=== PATIENT | female | born 1965 | race Caucasian/White ===

== ENCOUNTER 2021-10-30 17:07 | Outpatient (CLI) | payer BC, SELFPAY ==
--- NOTE | ~2021-10-30 | MM_ITS ---
EXAMINATION: MM screening benjamin BI w radha HISTORY: Screening TECHNIQUE: Craniocaudal and mediolateral oblique 3-D tomosynthesis images were obtained and synthetic 2-D images were generated. CAD analysis was submitted and interpreted. COMPARISON: Comparison to multiple prior studies sequentially, with oldest reviewed study dated 07/13. BREAST PARENCHYMAL COMPOSITION: There are scattered areas of fibroglandular density. FINDINGS: There is no evidence of suspicious mass, calcification, or architectural distortion to sugg est malignancy in either breast. There has been no suspicious interval change. IMPRESSION: 1. No mammographic evidence of malignancy. 2. Recommend routine screening mammography in one year. BI-RADS Category 1: Negative Reviewed, dictated and finalized at location A.
== END 2021-10-30 17:08 | disposition home or self-care (01) ==
PROVIDERS: PCP Internal Medicine; Visit Provider Obstetrics & Gynecology
DX: Z12.31 Encounter for screening mammogram for malignant neoplasm of breast (principal)
CPT/HCPCS: 77063; 77067

== ENCOUNTER 2024-03-14 17:30 | Emergency (ER) | payer BC, SELFPAY ==
--- NOTE | 2024-03-14 17:37 | ED.GENADULT ---
HPI - General Adult General Chief complaint: Dental/Oral Stated complaint: RT side Jaw Pain Time Seen by Provider: 03/14/24 17:38 Source: patient, RN notes reviewed and old records reviewed Mode of arrival: ambulatory Limitations: no limitations History of Present Illness HPI narrative: 58-year-old female presents to the [facility] with concerns of 10 day history of right jaw pain. Denies any injury. No redness or swelling. Patient reports tenderness to just to palpation. Has taken ibuprofen intermittently Onset (ago): day(s) (10) Treatments prior to arrival: NSAID Related Data Home Medications Medication Instructions Recorded Confirmed cholecalciferol (vitamin D3) 10 400 unit PO DAILY 04/11/19 03/14/24 mcg (400 unit) capsule ferrous sulfate 325 mg (65 mg 325 mg PO DAILY 04/11/19 03/14/24 iron) tablet (Feosol) ascorbic acid (vitamin C) 500 mg 500 mg PO DIRECTED 04/04/21 03/14/24 capsule multivitamin (Daily Multi-Vitamin 1 tablet PO DAILY 04/04/21 03/14/24 tablet) Allergies Allergy/AdvReac Type Severity Reaction Status Date / Time No Known Allergies Allergy Unknown Verified 08/17/23 08:13 Review of Systems Review of Systems: All systems reviewed & are unremarkable except as noted in HPI and below Constitutional: Constitutional: Reports no additional constitutional complaints ENT: Reports as per HPI Cardiovascular: Cardiovascular: Reports no additional cardiovascular complaints, Denies chest pain and Denies dyspnea Respiratory: Respiratory: Reports no additional respiratory complaints, Denies chest congestion, Denies cough and Denies dyspnea Gastrointestinal: Gastrointestinal: Reports no additional gastrointestinal complaints, Denies abdominal pain, Denies nausea and Denies vomiting Musculoskeletal: Musculoskeletal: Reports no additional musculoskeletal complaints Integumentary/Breasts: Skin/Breast: Reports system reviewed and no additional complaints, except as docu PMFSH Past Medical History Medical History Anemia Heart murmur Screening mammogram, encounter for Surgical History Surgical History History of dilation and curettage 11/16/11 hscope d&c/polypectomy/Novasure endometrial ablation History of endometrial ablation 11/16/11 hscope d&c/polypectomy/Novasure endometrial ablation History of partial thyroidectomy (~1987) (R) thyroidectomy History of removal of skin mole removed from face--benign History of tonsillectomy Family History Family History Mother Patient's mother is Diabetes mellitus Cerebrovascular accident Heart disease Hypertension Osteoporosis Father Patient's father is Grandparent Cerebrovascular accident paternal grandfather Diabetes mellitus maternal grandfather Hypertension maternal grandmother Carcinoma of colon maternal grandfather Other Diabetes mellitus sister Social History Social History Smoking status: Never smoker Second hand tobacco smoke exposure: No Alcohol intake: current Alcohol use details: 1-2 per month Substance use: never Substance use type: does not use Lack of Transportation: No Lack of Food: Never True Current Housing: I Have Housing Concerned About Future Housing: No Difficulty Paying Gas/Electric Bills: No Difficulty Paying for Meds: No Currently Unemployed: No Education: Associate Degree Difficulty w/ Childcare or Family Care: No Living arrangements: other Additional living arrangements comments: Occupation/Education: occupation Additional occupation/education comments: RN Gender identity (if verbalized by the patient): Female Sexual Orientation (if Verbalized by the Patient): Straight or Heterosexual Comments At the time of my signature, I reviewed and agree with the nursing past medical, surgical, social, and family history. There is no relevant family history pertinent to the patient complaint. Exam Const: General: cooperative, healthy appearing, comfortable, no acute distress, well developed, alert and well nourished Nutritional Appearance: well nourished Orientation/consciousness: patient oriented x3 Limitations: no limitations HENMT: Head: normal to inspection Head images: 1. Reports tenderness to palpation. No erythema, ecchymosis. No dental caries, no gingival swelling. No salivary gland stones palpated. No lymphadenopathy. Ears: hearing grossly normal bilaterally and external ears normal Face/Nose/Sinus: Normal external nose present, normal facial exam and face symmetric Face and sinus: normal facial exam and face symmetric Eyes: General: appearance normal, both eyes and all related structures Alignment and Position: alignment normal Periorbital: periorbital findings normal Neck: Neck: normal visual inspection, full ROM, no lymphadenopathy and no meningeal signs Chest: Chest palpation & inspection: normal inspection of the chest Resp: Effort & Inspection: normal respiratory effort and able to speak in complete sentences Cardio: Rate: regular rate Skin: General skin exam: normal color and no rashes or lesions noted Lesions: no lesions Rashes: no rashes Wounds: no wounds Neuro: General: patient oriented x3, gait normal, tone normal, moves all extremities and no meningeal signs Cognition (Neuro): normal cognition Speech: normal speech Gait exam (Neuro): Normal gait present Extrem: General: normal to inspection, full ROM, capillary refill normal and normal gait Psych: Appearance: grossly normal and well kempt Mental Status: mental status grossly normal Speech and movement: Normal speech and movement present and Clear speech present Affect: normal affect Attitude: cooperative Course Course Level of Care: Express Care Visit Vital Signs Vital signs: Vital Signs Temperature 98.1 F 03/14/24 17:38 Pulse Rate 71 03/14/24 17:38 Respiratory Rate 16 03/14/24 17:38 Blood Pressure 134/80 03/14/24 17:38 Pulse Oximetry 96 03/14/24 17:38 Oxygen Delivery Room Air 03/14/24 17:38 Temperature 98.1 F 03/14/24 17:41 Pulse Rate 71 03/14/24 17:41 Respiratory Rate 16 03/14/24 17:41 Blood Pressure 134/80 03/14/24 17:41 Pulse Oximetry 96 03/14/24 17:41 Oxygen Delivery Room Air 03/14/24 17:41 Reviewed Medical Decision Making MDM Narrative Medical decision making narrative: Patient sitting comfortably in exam room. Nontoxic, vitals stable. Patient in no acute distress Patient presents for right lower posterior jaw pain. No associated symptoms other than pain. No acute findings noted on exam. Discharge instructions reviewed with patient, as well as provided in writing per nursing staff. The instructions also include specific and strict return/GO TO THE ER as well as f/u information. All questions have been answered, and the patient deny any further questions with discharge and discharge plan. Some parts of this dictation were generated by voice recognition software and may contain typographical and/or grammatical inaccuracies. Differential Diagnosis Differential Diagnosis: TMJ, dental infection, cell very gland stone. Medical Records Medical records reviewed: Yes I reviewed the external patient's medical records. Vital Signs Vital Signs: Vital Signs Temperature 98.1 F 03/14/24 17:38 Pulse Rate 71 03/14/24 17:38 Respiratory Rate 16 03/14/24 17:38 Blood Pressure 134/80 03/14/24 17:38 Pulse Oximetry 96 03/14/24 17:38 Oxygen Delivery Room Air 03/14/24 17:38 Temperature 98.1 F 03/14/24 17:41 Pulse Rate 71 03/14/24 17:41 Respiratory Rate 16 03/14/24 17:41 Blood Pressure 134/80 03/14/24 17:41 Pulse Oximetry 96 03/14/24 17:41 Oxygen Delivery Room Air 03/14/24 17:41 Reviewed Lab Data Lab results reviewed: Yes I reviewed the patient's lab results. Labs: Reviewed Critical Care Time Critical Care Time Critical Care Time: No Discharge Plan Discharge Clinical Impression: Jaw pain Patient Disposition: Home, Self-Care Condition: Stable Instructions: Antibiotic Form, Temporomandibular Disorder (ED), Sialoadenitis (ED) Additional Instructions: Take Motrin alternating with Tylenol as needed for pain You can try using warm moist heat or cold compress whichever feels better Follow-up with dental provider Follow-up with primary care provider Patient Language: Khmer Prescriptions: No Action ferrous sulfate [Feosol] 325 mg (65 mg iron) tablet 325 mg PO DAILY cholecalciferol (vitamin D3) 400 unit capsule 400 unit PO DAILY ascorbic acid (vitamin C) 500 mg capsule 500 mg PO DIRECTED multivitamin [Daily Multi-Vitamin] Tablet 1 tablet PO DAILY Follow-up/Referrals: PHYSICIAN,OUTSOLES CHANNEL OPENER [Primary Care Provider] - Stand Alone Forms: Work/School Release IP Time of Disposition: 17:49
[2024-03-14 17:38] VITALS: BP 134/80; PULSE 71; RESP 16; TEMP 36.7; O2SAT 96
[2024-03-14 17:41] VITALS: BP 134/80; PULSE 71; RESP 16; TEMP 36.7; O2SAT 96
== END 2024-03-14 17:53 | disposition home or self-care (01) ==
PROVIDERS: Emergency Provider Nurse Practitioner
DX: R68.84 Jaw pain (principal); R01.1 Cardiac murmur, unspecified; D64.9 Anemia, unspecified
CPT/HCPCS: 99211; G0463

== ENCOUNTER 2024-11-20 00:47 | Day surgery (SDC) | payer BC, SELFPAY ==
[2024-11-07 12:20] VITALS: BMI 22.2
--- OUTSIDE RECORDS SUMMARY | 2024-11-20 00:50 | XMS_ITS | Clinical Summary ---
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 Gender Identity Not on file Sexual Orientation Not on file Plan of Treatment Health Maintenance Due Date Last Done Comments DTAP/TDAP/TD VACCINES (1 - Tdap) 1983 HPV/Cotest (21-29) 1985 CERVICAL CANCER SCREENING 1994 HPV/Cotest (30-65) 1994 PAP SMEAR 1994 BREAST CANCER SCREENING 2004 COLORECTAL SCREENING 2009 Colorectal Cancer Screening 2009 FIT-DNA Q 3 years 2009 FIT/FOBT Q 1 year 2009 Flex Sig/CT Colonography Q 5 years 2009 ZOSTER VACCINE (1 of 2) 2014 INFLUENZA VACCINE (#1) 2024 RSV VACCINE (60+ or ) (1 - 1-dose 75+ series) 2039 HEPATITIS B VACCINES Aged Out No long er eligible based on patient's age to complete this topic
--- OUTSIDE RECORDS SUMMARY | 2024-11-20 00:50 | XMS_ITS | Clinical Summary ---
Author Organization [facility] Address [address] [place] [address] Care Team Providers Care Software Controls Engineer Name Role Phone Daren Lentz MD Primary Care Provider [phone] Allergies No known active allergies Medications ranitidine 300 MG tablet Take 300 mg by mouth nightly at bedtime. Active Na sulfate-K sulfate-Mg sulfate (SUPREP BOWEL PREP KIT) 17.5-3.13-1.6 GM/177ML SolutionIndicat ions:Family history of polyps in the colon Take 177 mLs by mouth every 12 (twelve) hours. Take as directed in the instructions 2 Bottle 9 Active Cholecalciferol (VITAMIN D3) 2000 units Tab Take 2,000 Units by mouth. Active ferrous sulfate, 65 mg elemental, 325 (65 FE) MG tablet Take 130 mg by mouth daily with breakfast. Active Active Problems No known active problems Family History Medical History Relation Comments Colon Cancer Maternal Grandfather Hypertension Maternal Grandmother Hypertension Mother Relation Status Comments Maternal Grandfather Maternal Grandmother Mother Social History Tobacco Use Types Packs/Day Years Used Date Smoking Tobacco: Never Smokeless Tobacco: Never Alcohol Use Standard Drinks/Week Comments Yes 0 (1 standard drink = 0.6 oz pur e alcohol) rarely Comments Unknown Sex and Gender Information Value Date Recorded Sex Assigned at Not on file Legal Sex Female 8:37 PM CDT Gender Identity Not on file Sexual Orientation Not on file Last Filed Vital Signs Vital Sign Reading Time Taken Comments Blood Pressure 106/67 11/18/2018 9:31 AM CDT Pulse 56 11/18/2018 9:31 AM CDT Temperature 36.4 C (97.6 F) 11/18/2018 9:17 AM CDT Respiratory Rate 16 11/18/2018 9:31 AM CDT Oxygen Saturation 100% 11/18/2018 9:31 AM CDT Inhaled Oxygen Concentration - - Weight 54.4 kg (120 lb) 11/11/2018 2:53 PM CDT Height 160 cm (5' 3) 11/11/2018 2:53 PM CDT Body Mass Index 21.26 11/11/2018 2:53 PM CDT Plan of Treatment Health Maintenance Due Date Last Done Comments Cervical Cancer Screening Pa p Smear (Age 30 to 64) Every 3 Years 1964 Colorectal Cancer Screening Colonoscopy (10 Years) 1964 Annual Physical 1967 Hepatitis C 1982 DTaP, Tdap and Td Vaccines ( 1 - Tdap) 1983 Cervical Cancer Screening Pa p with HPV Testing (Age 30 to 64) Every 5 Years 1994 Cervical Cancer Screening with HPV 1994 Pneumococcal Vaccine: 50+ Ye ars (1 of 1 - PCV) 2014 Zoster Vaccines (1 of 2) 2014 Mammogram Screening 05/10/2021 05/10/2019 COVID-19 Vaccine ( - 2023-2 5 season) 2024 RSV Immunization or 60+ Years (1 - 1-dose 75+ series) 2039 Meningococcal B Vaccine Aged Out No l onger eligible based on patient's age to complete this topic Meningococcal Vaccine Aged Out No erica fara eligible based on patient's age to complete this topic RSV Immunizations Under 20 Months Aged Out No longer eligible based on patient's age to complete this topic Procedures Procedure Name Priority Date/Time Associated Diagnosis Comments MG SCREENING W SHAYY MARIA GUADALUPE DIGI Routine 05/10/2019 3:32 PM NAILHEAD OPERATOR Encounter for screening mammogram for malignant neoplasm of breast from Last 3 Months or Most Recently Relevant to Health Maintenance Results * MG SCREENING W SHAYY MARIA GUADALUPE DIGI (05/10/2019 3:32 PM NAILHEAD OPERATOR) Anatomical Region Laterality Modality Breast Bilateral Mammography 05/10/2019 3:39 PM NAILHEAD OPERATOR Narrative 05/10/2019 3:40 PM NAILHEAD OPERATOR IMAGING STUDIES: MG SCREENING W SHAYY MARIA GUADALUPE DIGI DATE: 05/10/2019 3:20 PM INDICATION: screening. COMPARISON: No comparisons. FINDINGS: Bilateral CC and MLO views, digital with CAD. 2-D with 3-D tomosynthesis. Breast compostition: Category B - There are areas of scattered fibroglandular density. No suspicious microcalcification, worrisome mass or evidence of architectural distortion. No skin thickening or nipple retraction. Benign microcalcifications. CONCLUSION: No mammographic evidence of malignancy. BI-RADS Category 1 - negative. Routine screening mammography recommended [facility] BI-RADS Categories: Category 0 - needs additional imaging evaluation. Category 1 - negative. Category 2 - benign findings. Category 3 - probably benign findings, but short interval follow-up is recommended. Category 4 - suspicious abnormality and biopsy should be considered though the lesion may well be benign. Category 5 - highly suggestive of malignancy and appropriate action should be taken. A) A negative report should not delay a biopsy if a dominant or clinically suspicious mass is present. B) Adenosis and dense breasts may obscure an underlying neoplasm. C) Study interpreted with computer aided detection. Interpreted By: Alexis Sandoval, 05/10/2019 3:39 PM Robbie Sun MD MAMMO Final Result from Last 3 Months or Most Recently Relevant to Health Maintenance Care Teams Software Controls Engineer Relationship Specialty Start Date End Date Daren Lentz MD [address] [place] [address] PCP - General INTERNAL MEDICINE 10/13/18
--- OUTSIDE RECORDS SUMMARY | 2024-11-20 00:50 | XMS_ITS | Clinical Summary ---
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 Gender Identity Not on file Sexual Orientation Not on file Plan of Treatment Health Maintenance Due Date Last Done Comments Hepatitis C Virus (HCV) Screening 1964 TdaP Immunization 1964 Pap Smear 1985 Cervical Cancer Screening (CCS) 1994 HPV/Cotest 1994 Cologuard 2009 Colonoscopy 2009 Colorectal Cancer Screening 2009 Immunochemical Fecal Occult Blood 2009 Pneumococcal Immunization (50+ years) (1 of 1 - PCV) 2014 Zoster Immunization (1 of 2) 2014 SARS-COV-2 Immunization ( - season) 2024 05/28/2021, 01/02/2021, 12/06/2020, Additional history exists Influenza Immunization (#1) 2025 Respiratory Syncytial Virus (RSV) Immunization (Adult) (1 - 1-dose 75+ series) 2039 Hepatitis B Immunization Aged Out No longer eligible based on patient's age to complete this topic Human Papillomavirus (HPV) Immunization Aged Out No longer eligible based on patient's age to complete this topic Meningococcal Immunization (ACWY) Aged Out No longer eligible based on patient's age to complete this topic Rotavirus Immunization Aged Out No lo nger eligible based on patient's age to complete this topic
--- OUTSIDE RECORDS SUMMARY | 2024-11-20 00:50 | XMS_ITS | Encounter Summary ---
Author Organization [facility] Address [address] [place] [address] Care Team Providers Care Numerical Control Tool Programmer Name Role Phone Unavailable Primary Care Provider Unavailabl e Encounter Details Date Type Department Care Team (Late st Contact Info) Description 02/28/2003 Outpatient Historical [facility] and Ground Floor S [facility] 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
--- OUTSIDE RECORDS SUMMARY | 2024-11-20 00:50 | XMS_ITS | Encounter Summary ---
Author Organization [employer] Address [address] [place] [address] Care Team Providers Care Data Base Administrator Name Role Phone Unavailable Primary Care Provider Unavailabl e Encounter Details Date Type Department Care Team (Latest Contact Info) Description 02/28/2003 Outpatient Historical [facility] Robbie Sun MD [address] [place] [address] ELDER MULTIGRAVID-ANTEPART UM (Primary Dx) Social History Tobacco Use Types Packs/Day Years Used Date Smoking Tobacco: Never Assessed Comments Unknown Sex and Gender Information Value Date Recorded Sex Assigned at Not on file Legal Sex Female 3:01 AM ACUTE CARE PHYSICIAN Gender Identity Not on file Sexual Orientation Not on file documented as of this encounter Plan of Treatment Not on file documented as of this encounter Visit Diagnoses Diagnosis Elderly multigravida with antepartum condition or complication- Primary documented in this encounter
--- OUTSIDE RECORDS SUMMARY | 2024-11-20 00:50 | XMS_ITS | Clinical Summary ---
Author Organization [facility] Address [address] [place] [address] Care Team Providers Care Analyst Programmer Name Role Phone Miscellaneous, Not In File Primary Care Provider Unavailable Encounters Date Type Department Care Team Description 09/27/2024 4:24 PM CDT - 09/27/2024 11:59 PM CDT Hospital Encounter [facility] [address] [facility] [address] [place] [address] Screening mammogram, encounter for Discharge Disposition: Discharge to home or self care from Last 3 Months Surgical History Surgery Date Site/Laterality Comments ENDOMETRIAL ABLATION W/ NOVASURE Family History Medical History Relation Name Comments Breast cancer Neg Hx Social History Tobacco Use Types Packs/Day Years Used Date Smoking Tobacco: Never Assessed Comments No Sex and Gender Information Value Date Recorded Sex Assigned at Not on file Legal Sex Female 7:47 PM ALUMNI SECRETARY Gender Identity Not on file Sexual Orientation Not on file Obstetrics History Para Term AB IAB SAB Ectopic Multiple Livin g Live Births 2 2 2 Date Outcome GA Total Labor Labor/2nd/3rd Weight Sex Type Anes PTL Em A1 A5 Name Clin Term Term Last Filed Vital Signs Vital Sign Reading Time Taken Comments Blood Pressure - - Pulse - - Temperature - - Respiratory Rate - - Oxygen Saturation - - Inhaled Oxygen Concentration - - Weight 56.7 kg (125 lb) 09/27/2024 4:32 PM CDT Height 160 cm (5' 3) 09/27/2024 4:32 PM CDT Body Mass Index 22.14 09/27/2024 4:32 PM CDT Plan of Treatment Health Maintenance Due Date Last Done Comments Cervical Cancer Screening 1964 Colon Cancer Screening-Colonoscopy 1964 Depression Screening 1964 Hepatitis C Screening 1964 DTaP/Tdap/Td Vaccine (1 - Tdap) 1975 Hepatitis B Screening 1982 Regular Well Visit/Exam 18-64 1982 Zoster Vaccine (1 of 2) 2014 Influenza Vaccine (Season Ended) 2025 01/01/2018 Breast Cancer Screening-Mammogram 09/27/2025 09/27/2024, 09/17/2023, 05/10/2019, Additional history exists Pneumococcal vaccine <65 Aged Out No longer eligible based on patient's age to complete this topic Procedures Procedure Name Priority Date/Time Associated Diagnosis Comments SCREENING MAMMOGRAM BILATERAL W AIME Schedule Routine, Read Routine (OP Routine) 09/27/2024 4:32 PM CDT Screening mammogram, encounter for from Last 3 Months Results * Screening Mammogram Bilateral W Aime (09/27/2024 4:32 PM CDT) Anatomical Region Laterality Modality Breast Bilateral Mammography Impressions 09/27/2024 4:34 PM CDT BI-RADS ATLAS category (overall): 1 - Negative There is no mammographic evidence of malignancy. A 1 year screening mammogram is recommended. The patient has been or will be contacted. We recommend annual screening mammography for women at average risk of breast cancer beginning at age 40, based on guidelines of the [employer] (ACR Practice Parameter for the Performance of Screening and Diagnostic Mammography) and [employer]. For women with and elevated risk of breast cancer, please refer to the ACR Practice Parameter for specific screening recommendations. The patient will be entered into a reminder system with a target due date of 1 year for her next screening exam. Narrative 09/27/2024 4:34 PM CDT Screening Mammogram Bilateral W Aime: 09/27/24 The study was acquired using full field digital technology and interpreted from soft copy. 2D digital mammographic views, as well as 3D digital tomosynthesis were performed in the CC and MLO projections. CLINICAL: Screening mammogram, encounter for. No relevant medical history has been documented for this patient. History of breast cancer in Neg Hx. COMPARISONS: 09/17/2023 Screening Mammogram Bilateral W Aime 05/10/2019 Breast Imaging Screening Outside Reference BREAST TISSUE: There are scattered areas of fibroglandular density. FINDINGS: No suspicious masses, suspicious calcifications, or other suspicious findings are seen within either breast. There has been no suspicious change. us Self Screening Mammogram IMG MAMMO PROCEDURES Fi nal Result from Last 3 Months Insurance Orbital Traction OOS Care Teams Analyst Programmer Relationship Specialty Start Date End Date Miscellaneous, Not In File PCP - General 09/20/24
--- OUTSIDE RECORDS SUMMARY | 2024-11-20 00:50 | XMS_ITS | Referral Summary ---
Author Organization [facility] Address [address] [place] [address] Care Team Providers Care Grocery Sacker Name Role Phone Miscellaneous, Not In File Primary Care Provider Unavailable Encounters Date Type Department Care Team Description 09/27/2024 4:24 PM CDT - 09/27/2024 11:59 PM CDT Hospital Encounter [facility] [address] [facility] [address] [place] [address] Screening mammogram, encounter for Discharge Disposition: Discharge to home or self care from Last 3 Months Social History Tobacco Use Types Packs/Day Years Used Date Smoking Tobacco: Never Assessed Comments No Sex and Gender Information Value Date Recorded Sex Assigned at Not on file 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 For women [...] nal Result from Last 3 Months Insurance [employer] Care Teams Grocery Sacker Relationship Specialty Start Date End Date Miscellaneous, Not In File PCP - General 09/20/24
[2024-11-20 09:58] VITALS: BP 122/76; PULSE 71; RESP 18; TEMP 36.5; O2SAT 99; BMI 21.9
[2024-11-20] MEDS: LACTATED RINGERS 1,000 ML 150 ML IV CONT (10:14)
--- NOTE | 2024-11-20 10:27 | WPDANESEPPF ---
Anes - Initial Pre Proc Eval Procedure: Operation Date: 11/20/24 11:30 Proposed Procedures p Screening Colonoscopy - Harsh Swain MD Date/Time: 11/20/24 10:27 Surgeon: Harsh Swain MD Pre Op Diagnosis: screening Patient Data Age: 59 Gender: F Height: 1.6 m Weight: 56.3 kg Last Vital Signs Temp 97.7 F 11/20/24 09:58 Pulse 71 11/20/24 09:58 Resp 18 11/20/24 09:58 BP 122/76 11/20/24 09:58 Pulse Ox 99 11/20/24 09:58 O2 Del Method Room Air 11/20/24 09:58 Allergies Allergy/AdvReac Type Severity Reaction Status Date / Time No Known Allergies Allergy Unknown Verified 11/20/24 10:05 Home Medications ?Medication ?Instructions ?Recorded ?Confirmed ?Type cholecalciferol (vitamin D3) 10 400 unit PO DAILY 04/11/19 11/20/24 History mcg (400 unit) capsule ferrous sulfate 325 mg (65 mg 325 mg PO DAILY 04/11/19 11/20/24 History iron) tablet (Feosol) ascorbic acid (vitamin C) 500 mg 500 mg PO DIRECTED 04/04/21 11/20/24 History capsule multivitamin (Daily Multi-Vitamin 1 tablet PO DAILY 04/04/21 11/20/24 History tablet) Patient hx anesthesia problems: none Family hx anesthesia problems: none Results Review: All pre-operative results and documents have been reviewed as part of the pre-operative evaluation. [facility] Past Medical History Medical History (Updated 08/01/24 @ 13:43 by Jesus Pittman APRN) Hx of cataract BMI 23.0-23.9, adult Serum iron raised Family history of polyps in the colon Annual physical exam Cataract (~09/2023) right eye Screening mammogram, encounter for Heart murmur Anemia Surgical History Surgical History History of tonsillectomy History of removal of skin mole removed from face--benign History of endometrial ablation 11/16/11 hscope d&c/polypectomy/Novasure endometrial ablation History of dilation and curettage 11/16/11 hscope d&c/polypectomy/Novasure endometrial ablation History of partial thyroidectomy (~1987) (R) thyroidectomy Family History Family History (Updated 08/01/24 @ 13:12 by KIM Campbell) Mother Diabetes mellitus Cerebrovascular accident Heart disease Hypertension Osteoporosis Father Patient's father is Grandparent Cerebrovascular accident paternal grandfather Diabetes mellitus maternal grandfather Hypertension maternal grandmother Carcinoma of colon maternal grandfather Sibling Diabetes mellitus Hypertension Social History Social History (Updated 08/01/24 @ 13:12 by KIM Campbell) Smoking status: Never smoker Second hand tobacco smoke exposure: Yes Alcohol intake: current Alcohol use details: 1-2 per month Substance use: never Substance use type: does not use Do You Feel Safe in your Home?: Yes Lack of Transportation: No Lack of Food: Never True Current Housing: I Have Housing Concerned About Future Housing: No Difficulty Paying Gas/Electric Bills: No Difficulty Paying for Meds: No Currently Unemployed: No Education: Associate Degree Difficulty w/ Childcare or Family Care: No Living arrangements: with family Additional living arrangements comments: Occupation/Education: occupation Additional occupation/education comments: RN Gender identity (if verbalized by the patient): Female Sexual Orientation (if Verbalized by the Patient): Straight or Heterosexual Anes - Eval Final PreProcedure Day of Procedure 11/20/24 10:27 Patient weight: normal Heart: regular rate and rhythm Lungs: clear to auscultation Airway: Mallampati scale class II Neurological: alert and oriented Last oral intake: >/= 8 hours ASA classification: I Emergent: no Anesthetic plan: proceed Anesthesia type and monitoring: general GIVS and standard monitoring Results Review: All pre-operative results and documents have been reviewed as part of the pre-operative evaluation. Informed Consent: The patient's anesthetic plan and its attendant risks and benefits were discussed with the patient/family/POA. Questions were solicited and answers provided to the satisfaction of the patient/family/POA.
--- NOTE | 2024-11-20 11:22 | PM.IMHP ---
H&P: HPI History of Present Illness Date/Time: 11/20/24 11:22 Chief Complaint: Screening colonoscopy Narrative: This is the patient's 2nd colonoscopy. There are no GI symptoms and there is no family history of colorectal cancer. Review of Systems Review of Systems: All systems reviewed & are unremarkable except as noted in HPI and below PMFSH Past Medical History Medical History (Updated 08/01/24 @ 13:43 by Jesus Pittman APRN) Hx of cataract BMI 23.0-23.9, adult Serum iron raised Family history of polyps in the colon Annual physical exam Cataract (~09/2023) right eye Screening mammogram, encounter for Heart murmur Anemia Surgical History Surgical History (Reviewed 04/18/24 @ 15:55 by Chuyita Warren [facility]) History of tonsillectomy History of removal of skin mole removed from face--benign History of endometrial ablation 11/16/11 hscope d&c/polypectomy/Novasure endometrial ablation History of dilation and curettage 11/16/11 hscope d&c/polypectomy/Novasure endometrial ablation History of partial thyroidectomy (~1987) (R) thyroidectomy Family History Family History (Updated 08/01/24 @ 13:12 by Katarina Nichols Rhianna) Mother Diabetes mellitus Cerebrovascular accident Heart disease Hypertension Osteoporosis Father Patient's father is Grandparent Cerebrovascular accident paternal grandfather Diabetes mellitus maternal grandfather Hypertension maternal grandmother Carcinoma of colon maternal grandfather Sibling Diabetes mellitus Hypertension Social History Social History (Updated 08/01/24 @ 13:12 by Katarnia Nichols Rhianna) Smoking status: Never smoker Second hand tobacco smoke exposure: Yes Alcohol intake: current Alcohol use details: 1-2 per month Substance use: never Substance use type: does not use Do You Feel Safe in your Home?: Yes Lack of Transportation: No Lack of Food: Never True Current Housing: I Have Housing Concerned About Future Housing: No Difficulty Paying Gas/Electric Bills: No Difficulty Paying for Meds: No Currently Unemployed: No Education: Associate Degree Difficulty w/ Childcare or Family Care: No Living arrangements: with family Additional living arrangements comments: Occupation/Education: occupation Additional occupation/education comments: RN Gender identity (if verbalized by the patient): Female Sexual Orientation (if Verbalized by the Patient): Straight or Heterosexual Meds Home Medications and Allergies Home Medications ?Medication ?Instructions ?Recorded ?Confirmed ?Type cholecalciferol (vitamin D3) 10 400 unit PO DAILY 04/11/19 11/20/24 History mcg (400 unit) capsule ferrous sulfate 325 mg (65 mg 325 mg PO DAILY 04/11/19 11/20/24 History iron) tablet (Feosol) ascorbic acid (vitamin C) 500 mg 500 mg PO DIRECTED 04/04/21 11/20/24 History capsule multivitamin (Daily Multi-Vitamin 1 tablet PO DAILY 04/04/21 11/20/24 History tablet) Allergies Allergy/AdvReac Type Severity Reaction Status Date / Time No Known Allergies Allergy Unknown Verified 11/20/24 10:05 Vital Signs Vital Signs - 24 hr 11/20/24 09:58 Temperature 97.7 F Pulse Rate 71 Respiratory Rate 18 Blood Pressure 122/76 Pulse Oximetry 99 Oxygen Delivery Room Air Exam Const: General: cooperative and healthy appearing Resp: Effort & Inspection: normal respiratory effort and able to speak in complete sentences Auscultation: clear to auscultation bilaterally Cardio: Rate: regular rate Rhythm: regular rhythm GI: Inspection: normal to inspection GI Palp: No No hepatosplenomegaly present Auscultation: normal bowel sounds Rectal Exam: deferred Skin: General skin exam: normal color Psych: Appearance: grossly normal Mental Status: mental status grossly normal Assessment and Plan Assessment and plan (1) Screening for colon cancer: Code(s): Z12.11 - Encounter for screening for malignant neoplasm of colon Status: Acute Assessment and Plan: The patient is deemed a good candidate for the procedure. Consent signed. Will proceed.
[2024-11-20] MEDS: SIMETHICONE ORAL SUSPENSION 20 MG/0.3 ML 30 ML BOTTLE 0.6 ML IRRIGATION (11:36)
[2024-11-20 11:48] VITALS: BP 109/62; PULSE 64; RESP 15; O2SAT 98
[2024-11-20 11:58] VITALS: BP 112/70; PULSE 59; RESP 15; O2SAT 98
[2024-11-20 12:08] VITALS: BP 118/70; PULSE 60; RESP 19; O2SAT 100
== END 2024-11-20 12:25 | disposition home or self-care (01) ==
PROVIDERS: PCP Nurse Practitioner; Referring Provider Nurse Practitioner; Visit Provider Internal Medicine Gastroenterology
PROC: 0DJD8ZZ Inspection of Lower Intestinal Tract, Via Natural or Artificial Opening Endoscopic (ICD-10-PCS; CPT 45378; principal; 2024-11-20 11:30)
DX: Z12.11 Encounter for screening for malignant neoplasm of colon (principal); K57.30 Diverticulosis of large intestine without perforation or abscess without bleeding
CPT/HCPCS: 45378; J2003; J2704; J7120